=== PATIENT | male | born 1980 ===

== ENCOUNTER 2017-01-30 16:46 | Emergency (ER) | payer OTHER ==
[2017-01-30 17:03] VITALS: BMI 25.8
[2017-01-30 17:05] VITALS: RESP 18; TEMP 98.2
--- NOTE | 2017-01-30 17:54 | C.PDOC ---
History Of Present Illness 36 y/o male presents to ED for evaluation on right thigh pain developed yesterday after sustained fall. Patient reports he fell down approximate 6ft high from ladder at work, and landed on right side of body. Pain is localized over the right thigh and worse with ambulation. Patient denies Head injury, LOC , syncope, neck pain, CP, back pain, N/V, denies deformity, weakness, sensory or vascular deficits to B/L LEs. Ambulate to Ed for evaluation, not in any apparent distress. Time Seen by Provider: 01/30/17 17:36 Chief Complaint (Nursing): Lower Extremity Problem/Injury History Per: Patient History/Exam Limitations: no limitations Onset/Duration Of Symptoms: Days Current Symptoms Are (Timing): Still Present - Hip Description Of Injury: Fell Past Medical History Reviewed: Historical Data, Nursing Documentation, Vital Signs Vital Signs: Last Vital Signs Temp 98.2 F 01/30/17 17:03 Pulse 78 01/30/17 18:55 Resp 18 01/30/17 18:55 BP 124/75 01/30/17 18:55 Pulse Ox 98 01/30/17 18:55 Family History: States: No Known Family Hx - Social History Hx Alcohol Use: No Hx Substance Use: No - Immunization History Hx Tetanus Toxoid Vaccination: No Hx Influenza Vaccination: No Hx Pneumococcal Vaccination: No Review Of Systems Except As Marked, All Systems Reviewed And Found Negative. Constitutional: Negative for: Fever, Chills Musculoskeletal: Positive for: Leg Pain. Negative for: Neck Pain Skin: Negative for: Rash Neurological: Negative for: Weakness, Headache Physical Exam - Physical Exam Appears: Well, Non-toxic, No Acute Distress Skin: Normal Color, Warm, No Ecchymosis Head: Atraumatic, Normacephalic Neck: No Midline Cervical Tenderness, No Paracervical Tenderness, No Step Off Deformity, Supple Chest: Symmetrical, No Deformity, No Tenderness Gastrointestinal/Abdominal: Soft, No Tenderness Back: No Vertebral Tenderness, No Paraspinal Tenderness Extremity: Normal ROM (B/L UEs and LEs.), Tenderness (posterior Right thigh. NO palpable deformity, no ecchymoses.), No Deformity, No Swelling Neurological/Psych: Oriented x3, Normal Speech, Normal Motor, Normal Sensation, Normal Reflexes ED Course And Treatment O2 Sat by Pulse Oximetry: 96 (RA) Pulse Ox Interpretation: Normal - Other Rad pelvis and Right hip X-Ray: Interpreted by Me, Viewed By Me Interpretation: no acute fx Right knee X-Ray: Interpreted by Me, Viewed By Me Interpretation: (+) patellar fx Progress Note: On re-eval, pt is afebrile, hemodynamicaly stable. Non-toxic. AMbulatoyr in ED. head: AT/NC. neck: (-) midline tenderness. Abd: bengn. RLE : exam c/w Right posterior femoral contusion, FAROM, no neurovascular deficits. Xray review and c/w (+) Right patellar fx. Knee immobilizer applied to Right knee, crutches. Pt advised and ref. to F/u with Ortho in 2-3 days for re-eval. reutrn to ED if any worsening or new changes. Disposition Counseled Patient/Family Regarding: Studies Performed, Diagnosis, Need For Followup, Rx Given - Disposition Referrals: Fredi Puckett MD [Staff Provider] - Disposition: HOME/ ROUTINE Disposition Time: 18:20 Condition: STABLE Additional Instructions: Ice, rest, avoid prolong walking for 1 week knee immobilizer Take pain medication as need Follow up with Orthopedist in 2-3 days for re-evaluation. return to ED if any worsening or new changes. Prescriptions: traMADol [Ultram] 50 mg PO TID #7 tab Instructions: Patellar Fracture (ED), Hip Contusion (ED) Forms: Work Excuse - Clinical Impression Clinical Impression: Patella fracture, Contusion of hip - PA / YARN SIZER / Resident Statement MD/DO has reviewed & agrees with the documentation as recorded. - Scribe Statement The provider has reviewed the documentation as recorded by the Joe Garcia All medical record entries made by the Joe were at my direction and personally dictated by me. I have reviewed the chart and agree that the record accurately reflects my personal performance of the history, physical exam, medical decision making, and the department course for this patient. I have also personally directed, reviewed, and agree with the discharge instructions and disposition.
[2017-01-30 18:55] VITALS: BP 124/75; PULSE 78
--- NOTE | 2017-01-30 18:58 | RAD ---
PROCEDURE: Right Knee Radiographs. HISTORY: injury COMPARISON: None. FINDINGS: BONES: Acute patellar fracture. The finding is marked on the study for review. JOINTS: Normal. No osteoarthritis. JOINT EFFUSION: None. OTHER FINDINGS: None. IMPRESSION: Acute fracture of the patella at the insertion of the patellar tendon. Concordant results with the preliminary interpretation rendered by the emergency department physician procedure.
[2017-01-30 22:57] VITALS: O2SAT 96
--- NOTE | 2017-01-31 16:13 | RAD ---
PROCEDURE: Right femur dated 01/30/2017 HISTORY: injury COMPARISON: Correlation made with concurrent radiographs of the pelvis and right knee. . TECHNIQUE: AP and lateral views of the right femur performed. FINDINGS: Previously noted patellar fracture again noted of the right knee No evidence acute displaced fracture nor dislocation. The osseous structures intact. Mild degenerative changes right hip with slight spurring along the superolateral margins of the acetabular roof. Similar but less exuberant spurring left superolateral acetabular. Suspect minor left-sided joint space narrowing. If symptoms persist or occult fracture suspected clinically consider followup CT scan. IMPRESSION: Fracture inferior margin of the patella again noted. No evidence of acute displaced fracture nor dislocation. Mild DJD both hips as above. Consider followup CT scan if symptoms persist or occult fracture suspected clinically.
--- NOTE | 2017-01-31 16:15 | RAD ---
PROCEDURE: Pelvis dated 01/30/2017 HISTORY: Injury. COMPARISON: No prior FINDINGS: Current study reveals no evidence of acute displaced fracture nor dislocation. The osseous structures appear intact. Both femoral heads appropriately located within the respective acetabula. Slight spurring along the superolateral margins of the acetabular roofs right greater than left. There appears be some very minimal left-sided hip joint space narrowing Impression: No acute fractures. If symptoms persist or occult fracture suspected clinically recommend followup CT scan. Mild DJD as described.
== END 2017-01-30 19:00 | disposition home or self-care (01) ==
LOC: C.ER 16:46
DX: S82.001A Unspecified fracture of right patella, initial encounter for closed fracture (principal); S70.01XA Contusion of right hip, initial encounter; W11.XXXA Fall on and from ladder, initial encounter; Y92.89 Other specified places as the place of occurrence of the external cause; Y99.0 Civilian activity done for income or pay

== ENCOUNTER → 2017-05-15 19:53 | Emergency (ER) | payer SELFPAY ==
[2017-05-15 19:54] VITALS: BMI 25.8
== END | disposition left against medical advice (07) ==
LOC: C.ER 19:53
DX: S61.219A Laceration without foreign body of unspecified finger without damage to nail, initial encounter (principal); Z02.9 Encounter for administrative examinations, unspecified

== ENCOUNTER 2017-05-16 15:08 | Emergency (ER) | payer OTHER ==
[2017-05-16 15:09] VITALS: BMI 25.8
[2017-05-16 16:21] VITALS: RESP 18
[2017-05-16] MEDS ORDERED: Lidocaine 1% Inj (20ml) INFIL STA (17:26)
[2017-05-16] MEDS ORDERED: Bacitracin 500 Units/gm Oint Foilpak UD TOP STA (17:26)
[2017-05-16] MEDS ORDERED: Tetanus/Diphtheria Toxoids 0.5 ml Syringe IM ONE ×2 (17:26→17:36)
[2017-05-16] MEDS ORDERED: Bacitracin 500 Units/gm Oint Foilpak UD ONE (17:36)
[2017-05-16] MEDS ORDERED: Lidocaine 1% Inj (20ml) ONE (17:36)
--- NOTE | 2017-05-16 17:54 | RAD ---
PROCEDURE: Right ring finger radiographs. HISTORY: crush injury COMPARISON: None available. TECHNIQUE: AP radiograph of the right hand, as well as spot oblique and lateral images of ring finger were obtained. FINDINGS: RIGHT RING FINGER: Unremarkable right 4th digit, without acute displaced fracture identified. Remainder of the right hand (as seen on the AP view) grossly unremarkable. JOINTS: No dislocation. SOFT TISSUES: No evidence of radiopaque foreign body. OTHER FINDINGS: None. IMPRESSION: No acute displaced fracture or dislocation identified. If symptoms persist or if there is continued clinical concern, x-ray follow-up in 7-10 days should be considered.
--- NOTE | 2017-05-16 18:37 | C.PDOC ---
History Of Present Illness 37 y/o male presents to ED with complaints of pain to right 4th finger. Patient states yesterday he slammed door yesterday and came to ed for evaluation but left because "he had something more important to do " but pain continued which prompted visit today. Patient denies numbness, tingling or any other complaints at this time. Not UTD with tetanus vaccine Time Seen by Provider: 05/16/17 17:13 Chief Complaint (Nursing): Finger,Hand,&Wrist History Per: Patient History/Exam Limitations: no limitations Onset/Duration Of Symptoms: Days Current Symptoms Are (Timing): Still Present Quality: "Pain" Past Medical History Reviewed: Historical Data, Nursing Documentation, Vital Signs Vital Signs: Last Vital Signs Temp 98.1 F 05/16/17 18:47 Pulse 75 05/16/17 18:47 Resp 18 05/16/17 18:47 BP 134/89 05/16/17 18:47 Pulse Ox 97 05/16/17 19:07 - Medical History PMH: No Chronic Diseases Surgical History: No Surg Hx Family History: States: No Known Family Hx - Social History Hx Alcohol Use: No Hx Substance Use: No - Immunization History Hx Tetanus Toxoid Vaccination: No Hx Influenza Vaccination: No Hx Pneumococcal Vaccination: No Review Of Systems Except As Marked, All Systems Reviewed And Found Negative. Constitutional: Negative for: Fever, Chills Gastrointestinal: Negative for: Nausea, Vomiting Musculoskeletal: Positive for: Hand Pain Skin: Negative for: Rash Neurological: Negative for: Weakness, Numbness Physical Exam - Physical Exam Appears: Non-toxic Skin: Warm, Dry Head: Atraumatic, Normacephalic Eye(s): bilateral: Normal Inspection, EOMI Oral Mucosa: Moist Neck: Normal ROM, Supple Chest: Symmetrical Extremity: Capillary Refill (<2 seconds), No Deformity, Swelling (PAP joint of right 4th finger), Other (2cm laceration to dorsum of the middle phalanx of the right 4th finger) Extremity: Bilateral: Normal ROM Pulses: Left Radial: Normal, Right Radial: Normal Neurological/Psych: Oriented x3, Normal Motor, Normal Sensation ED Course And Treatment O2 Sat by Pulse Oximetry: 97 (RA) Pulse Ox Interpretation: Normal - Other Rad Right Hand 4th digit X-Ray: Interpreted by Me, Viewed By Me, Read By Radiologist Interpretation: PROCEDURE: Right ring finger radiographs. HISTORY: crush injury. COMPARISON: None available. TECHNIQUE: AP radiograph of the right hand, as well as spot oblique and lateral images of ring finger were obtained. FINDINGS: RIGHT RING FINGER: Unremarkable right 4th digit, without acute displaced fracture identified. Remainder of the right hand (as seen on the AP view) grossly unremarkable. JOINTS: No dislocation. SOFT TISSUES: No evidence of radiopaque foreign body. OTHER FINDINGS: None. IMPRESSION: No acute displaced fracture or dislocation identified. If symptoms persist or if there is continued clinical concern, x-ray follow-up in 7-10 days should be considered. Progress Note: Keflex, Finger soaked and irigated,. Finger sutured and splint applied to patient. Patient discharged and advised to follow up with PMD Procedure: Wound Repair - Consent Obtained Consent obtained: Verbal - Performed by Performed by: Mid-level Provider (by medical student Guzman) - Indications Indication(s):: Laceration - Location Finger:: Right, Ring - Anesthetic Technique Anesthetic Technique: Regional block Local/Regional Anesthetic:: Lidocaine 1% - Complexity Complexity:: Simple (one layer) - Wound repair method Sutures:: # (3), Size (4-0), Type (vicryl), Technique (interrupted) - Patient tolerated procedure Patient Tolerated Procedure:: Well Disposition - Disposition Referrals: Moni Lange MD [Staff Provider] - Disposition: HOME/ ROUTINE Disposition Time: 18:34 Condition: STABLE Additional Instructions: Follow up with Hand specialist within 1-2 days. Return to ED if feel worse. Prescriptions: Mupirocin 2% Ointment [Bactroban Ointment] 1 appl TP BID #1 tube Cephalexin [cephalexin] 500 mg PO Q6 #28 cap Ibuprofen [Motrin Tab] 600 mg PO Q8 #30 tab Instructions: Care For Your Absorbable Stitches (ED) Forms: [employer] (Mohawk) - Clinical Impression Clinical Impression: Finger laceration - PA / DATA INPUT CLERK / Resident Statement MD/DO has reviewed & agrees with the documentation as recorded. - Scribe Statement The provider has reviewed the documentation as recorded by the Scribmikaela Garcia All medical record entries made by the Scribe were at my direction and personally dictated by me. I have reviewed the chart and agree that the record accurately reflects my personal performance of the history, physical exam, medical decision making, and the department course for this patient. I have also personally directed, reviewed, and agree with the discharge instructions and disposition.
[2017-05-16 18:47] VITALS: BP 134/89; PULSE 75; TEMP 98.1
[2017-05-16 19:00] VITALS: O2SAT 97
== END 2017-05-16 19:04 | disposition home or self-care (01) ==
LOC: C.ER 15:08
DX: S61.214A Laceration without foreign body of right ring finger without damage to nail, initial encounter (principal); W23.0XXA Caught, crushed, jammed, or pinched between moving objects, initial encounter; Y93.89 Activity, other specified; Y92.89 Other specified places as the place of occurrence of the external cause

== ENCOUNTER 2017-05-25 13:07 | Emergency (ER) | payer OTHER ==
[2017-05-25 13:07] VITALS: BMI 25.8
[2017-05-25 13:22] VITALS: BP 122/72; PULSE 73; RESP 18; TEMP 98.4; O2SAT 98
--- NOTE | 2017-05-25 13:56 | C.PDOC ---
History Of Present Illness 37 yo male came to ER for evaluation right 4th finger. Pt had a laceration repair on 05/16, took the coarse of antibiotics and the following day noted swelling and discharge from the laceration. No change in sensation. No fever. Time Seen by Provider: 05/25/17 13:27 Chief Complaint (Nursing): Wound Check History Per: Patient History/Exam Limitations: no limitations Onset/Duration Of Symptoms: Days Ago Past Medical History Vital Signs: Last Vital Signs Temp 98.4 F 05/25/17 13:21 Pulse 73 05/25/17 13:21 Resp 18 05/25/17 13:21 BP 122/72 05/25/17 13:21 Pulse Ox 98 05/25/17 17:00 Family History: States: Unknown Family Hx - Social History Hx Alcohol Use: No Hx Substance Use: No - Immunization History Hx Tetanus Toxoid Vaccination: No Hx Influenza Vaccination: No Hx Pneumococcal Vaccination: No Review Of Systems Constitutional: Negative for: Fever Cardiovascular: Negative for: Chest Pain Neurological: Negative for: Weakness, Numbness Physical Exam - Physical Exam Appears: Well, Non-toxic, No Acute Distress Skin: Warm, Dry Head: Atraumatic, Normacephalic Eye(s): bilateral: Normal Inspection, EOMI Nose: Normal Oral Mucosa: Moist Neck: Normal ROM, Supple Chest: Symmetrical Respiratory: No Accessory Muscle Use Extremity: Normal ROM, Tenderness ((+) tenderness, swelling and mild erythema to right 4th finger , three sutures noted on one side- not holding laceration closed, no discharge), Capillary Refill (< 2 sec), Swelling Pulses: Left Radial: Normal, Right Radial: Normal Neurological/Psych: Oriented x3, Normal Speech, Normal Motor, Normal Sensation ED Course And Treatment O2 Sat by Pulse Oximetry: 98 Progress Note: Suture were removed. Wound was irrigated. Bacitracin applied and finger splint applied by RN. No discharge noted. Very mild erythema localized around the cut. Discussed wound care and f.u with hand specialist / ER in 1-2 days. Disposition - Disposition Referrals: Yinka Wagner MD [Staff Provider] - Disposition: HOME/ ROUTINE Disposition Time: 13:55 Condition: STABLE Additional Instructions: Wound check in 2 days. Prescriptions: Mupirocin 2% Ointment [Bactroban Ointment] 1 appl TP TID #1 tube Sulfamethoxazole/Trimethoprim [Bactrim DS 800 mg-160 mg] 1 tab PO BID #14 tab Instructions: Finger Laceration (ED) Forms: [employer] (Georgian) - Clinical Impression Clinical Impression: Finger laceration, Visit for wound check, Infection of skin
[2017-05-25] MEDS ORDERED: Bacitracin 500 Units/gm Oint Foilpak UD ONE (14:20)
== END 2017-05-25 14:27 | disposition home or self-care (01) ==
LOC: C.ER 13:07
DX: Z51.89 Encounter for other specified aftercare (principal); L08.9 Local infection of the skin and subcutaneous tissue, unspecified; S61.214A Laceration without foreign body of right ring finger without damage to nail, initial encounter; X58.XXXA Exposure to other specified factors, initial encounter

== ENCOUNTER 2017-10-09 14:05 | Emergency (ER) | payer OTHER ==
[2017-10-09 14:06] VITALS: BMI 25.8
[2017-10-09] MEDS ORDERED: Bacitracin 500 Units/gm Oint Foilpak UD TOP ONE (17:21)
[2017-10-09] MEDS ORDERED: Lidocaine 1% Inj (20ml) INFIL ONE (17:21)
[2017-10-09] MEDS ORDERED: Tdap Vaccine 0.5 ml Vial (10-64 yrs) IM ONE ×2 (17:21→17:28)
[2017-10-09] MEDS ORDERED: Bacitracin 500 Units/gm Oint Foilpak UD ONE (17:28)
[2017-10-09] MEDS ORDERED: Lidocaine 1% Inj (20ml) ONE (17:28)
[2017-10-09 17:33] VITALS: BP 144/92; PULSE 72; RESP 18; TEMP 98.9; O2SAT 98
--- NOTE | 2017-10-09 17:44 | RAD ---
PROCEDURE: Right Hand Radiographs. HISTORY: punched glass, eval for fb COMPARISON: Right 4th digit radiographs performed 05/16/17 FINDINGS: BONES: No acute displaced fracture. JOINTS: No dislocation. SOFT TISSUES: Soft tissue swelling. 0.6 x 2.6 cm density at the level of the distal 2nd metacarpal (laterally) and 0.2 cm density more proximally seen on lateral view. These densities are suspected to reflect foreign bodies. OTHER FINDINGS: None. IMPRESSION: Soft tissue swelling. 0.6 x 2.6 cm density at the level of the distal 2nd metacarpal (laterally) and 0.2 cm density more proximally seen on lateral view. These densities are suspected to reflect foreign bodies. No acute displaced fracture, dislocation, or significant joint effusion identified. If symptoms persist, or if there is continued clinical concern, x-ray follow-up in 7-10 days should be considered.
--- NOTE | 2017-10-09 18:16 | C.PDOC ---
History Of Present Illness 37 y/o male presents to ED for evaluation of right hand lacerations sustained prior to arrival after punching TV. Patient reports foreign body sensation and denies weakness, numbness or any other complaints at this time. Time Seen by Provider: 10/09/17 17:10 Chief Complaint (Nursing): Abnormal Skin Integrity History Per: Patient History/Exam Limitations: no limitations Onset/Duration Of Symptoms: Hrs Current Symptoms Are (Timing): Still Present Past Medical History Reviewed: Historical Data, Nursing Documentation, Vital Signs Vital Signs: Last Vital Signs Temp 98.9 F 10/09/17 17:33 Pulse 72 10/09/17 17:33 Resp 18 10/09/17 17:33 BP 144/92 H 10/09/17 17:33 Pulse Ox 98 10/09/17 18:23 - Medical History PMH: No Chronic Diseases Surgical History: No Surg Hx Family History: States: No Known Family Hx - Social History Hx Alcohol Use: No Hx Substance Use: No - Immunization History Hx Tetanus Toxoid Vaccination: No Hx Influenza Vaccination: No Hx Pneumococcal Vaccination: No Review Of Systems Musculoskeletal: Positive for: Hand Pain Skin: Negative for: Rash Neurological: Negative for: Weakness, Numbness Physical Exam - Physical Exam Appears: Non-toxic, No Acute Distress Skin: Warm, Dry, No Rash, Other (1cm laceration diagonal. 2cm laceration to 3rd metacarpal area. 3cm laceration across right knuckle) Head: Atraumatic, Normacephalic Eye(s): bilateral: Normal Inspection Oral Mucosa: Moist Neck: Normal ROM, Supple Extremity: Normal ROM, No Deformity, Swelling (right hand) Pulses: Left Radial: Normal, Right Radial: Normal Neurological/Psych: Oriented x3, Normal Motor, Normal Sensation ED Course And Treatment O2 Sat by Pulse Oximetry: 98 (RA) Pulse Ox Interpretation: Normal Laceration - Laceration Repair Right hand Wound Length (In cm): 1cm Description Of Wound: Linear Wound Cleansed With: Betadine, Sterile Saline Anesthesia: Lidocaine 1% Wound Examination: Irrigated With Saline, No FB With Wound Exploration Wound Debridement/Revision: Wound Debrided Wound Closure: Suture (2) Suture Technique And Material Used: Nylon (4-O) right 3rd metacarpal Wound Length (In cm): 2cm Description Of Wound: Linear Wound Cleansed With: Betadine, Sterile Saline Anesthesia: Lidocaine 1% Wound Examination: Irrigated With Saline Wound Closure: Suture (4) Suture Technique And Material Used: Nylon (4-O) Right knuckle Wound Length (In cm): 3 Description Of Wound: Linear Wound Cleansed With: Betadine, Sterile Saline Anesthesia: Lidocaine 1% Wound Examination: Irrigated With Saline, Foreign Material Removed Manually ( Glass) Wound Closure: Suture (7) Suture Technique And Material Used: Nylon (4-O) Medical Decision Making Medical Decision Making: lacs repaired, tdap updated. d./c with keflex Disposition Counseled Patient/Family Regarding: Studies Performed, Diagnosis, Need For Followup, Rx Given - Disposition Referrals: [facility] [Outside] Disposition Time: 18:19 Additional Instructions: Keep dressing on hand for next 24 hours, then change dressing daily, apply bacitracin and cover up. Take antibiotics as prescribed. Take Tylenol or Motrin for pain. Return to ER for any sign of infection such as redness, swelling, or discharge. Suture removal 10 days. Prescriptions: Bacitracin OINT 1 applic TOP BID #1 tube Cephalexin [cephalexin] 500 mg PO QID #20 cap Instructions: Laceration Repair With Stitches (DC) Forms: [employer] (Saudi Arabian) - Clinical Impression Clinical Impression: Laceration of right hand with foreign body - PA / AREA COUNSELOR / Resident Statement MD/DO has reviewed & agrees with the documentation as recorded. - Scribe Statement The provider has reviewed the documentation as recorded by the Joe Garcia All medical record entries made by the Yaelibmikaela were at my direction and personally dictated by me. I have reviewed the chart and agree that the record accurately reflects my personal performance of the history, physical exam, medical decision making, and the department course for this patient. I have also personally directed, reviewed, and agree with the discharge instructions and disposition.
== END 2017-10-09 18:28 | disposition home or self-care (01) ==
LOC: C.ER 14:05
DX: S61.421A Laceration with foreign body of right hand, initial encounter (principal); W22.8XXA Striking against or struck by other objects, initial encounter; Y92.89 Other specified places as the place of occurrence of the external cause

== ENCOUNTER 2017-10-25 16:11 | Emergency (ER) | payer OTHER ==
[2017-10-25 16:11] VITALS: BMI 25.8
[2017-10-25 16:24] VITALS: BP 138/86; PULSE 77; TEMP 98.2; O2SAT 98
[2017-10-25 17:28] VITALS: RESP 18
== END 2017-10-25 16:45 | disposition left against medical advice (07) ==
LOC: C.ER 16:11
DX: Z02.89 Encounter for other administrative examinations (principal); Z48.02 Encounter for removal of sutures

== ENCOUNTER 2018-04-10 10:13 | Emergency (ER) | payer MEDICAID, OTHER ==
[2018-04-10 10:13] VITALS: BMI 25.8
--- NOTE | 2018-04-10 10:43 | C.PDOC ---
History Of Present Illness <Avery Sanchez - Last Filed: 04/10/18 14:40> <Reji Hutchins M - Last Filed: 04/12/18 00:06> CC: Right knee injury Patient is a 38 year old male with no known past medical history, who presents to the clinic with complaint of right knee injury that started 1.5 months ago after falling from a 9-10 ft ladder while working. Patient reports that he had an injury to his right knee a year ago which happened at work as well. Patient admits to mild difficulty with ambulation but denies numbness or tingling or knee swelling. (Avery Sanchez) History Per: Patient History/Exam Limitations: no limitations Onset/Duration Of Symptoms: Days Current Symptoms Are (Timing): Still Present Severity: Moderate Pain Scale Rating Of: 5 Location: Right Knee Quality: Dull, achy <Avery Sanchez - Last Filed: 04/10/18 14:40> <Reji Hutchins M - Last Filed: 04/12/18 00:06> Time Seen by Provider: 04/10/18 10:25 Chief Complaint (Nursing): Lower Extremity Problem/Injury Past Medical History - Medical History PMH: No Chronic Diseases Other Surgeries: Hernia repair at the age of 17 Family History: States: Unknown Family Hx - Social History Hx Alcohol Use: No Hx Substance Use: No - Immunization History Hx Tetanus Toxoid Vaccination: No Hx Influenza Vaccination: No Hx Pneumococcal Vaccination: No <Avery Sanchez - Last Filed: 04/10/18 14:40> Vital Signs: Last Vital Signs Temp 98 F 04/10/18 13:36 Pulse 60 04/10/18 13:36 Resp 18 04/10/18 13:36 BP 118/74 04/10/18 13:36 Pulse Ox 98 04/10/18 14:42 Review Of Systems Constitutional: Negative for: Fever, Chills, Weakness, Malaise, Weight loss Eyes: Negative for: Pain, Vision Change ENT: Negative for: Ear Pain, Ear Discharge, Nose Congestion, Mouth Pain, Throat Swelling Cardiovascular: Negative for: Chest Pain, Palpitations Respiratory: Negative for: Cough, Shortness of Breath Gastrointestinal: Negative for: Nausea, Vomiting, Abdominal Pain Genitourinary: Negative for: Dysuria Musculoskeletal: Positive for: Other (Right knee movie ). Negative for: Neck Pain Skin: Negative for: Rash, Lesions, Jaundice, Bruising Neurological: Positive for: Weakness, Numbness. Negative for: Confusion, Seizures, Dizziness, Other <Avery Sanchez - Last Filed: 04/10/18 14:40> Physical Exam - Physical Exam Appears: Well Skin: Normal Color, Warm Head: Atraumatic, Normacephalic Eye(s): bilateral: EOMI Oral Mucosa: Moist Neck: Normal ROM Cardiovascular: Rhythm Regular Respiratory: Normal Breath Sounds Gastrointestinal/Abdominal: Normal Exam, Bowel Sounds Extremity: Other (Decreased ROM at the right knee joint ) Neurological/Psych: Oriented x3, Normal Speech <Avery Sanchez - Last Filed: 04/10/18 14:40> - Physical Exam Extremity: Tenderness (right anterior knee, no gross swelling,nv intact, no calf tenderness ) <Reji Hutchins - Last Filed: 04/12/18 00:06> ED Course And Treatment O2 Sat by Pulse Oximetry: 98 <Avery Sanchez - Last Filed: 04/10/18 14:40> Medical Decision Making <Avery Sanchez - Last Filed: 04/10/18 14:40> <Reji Hutchins - Last Filed: 04/12/18 00:06> Medical Decision Making: Right Knee X-ray: No interval fracture or interval dislocation noted. The intra osseous inferior patellar pole fracture lines suggest interval, at least, partial healing here. . The separate inferior patellar osseous fracture fragment is similar in appearance since 2017 compatible with an old injury no further displacement of it noted. (Avery Sanchez) patient states he will follow up with his orthopaedic doctor and will go to the office today. (Reji Hutchins) Disposition Discussed With : Reji Hutchins - Disposition Disposition Time: 12:02 <Avery Sanchez - Last Filed: 04/10/18 14:40> <Reji Hutchins - Last Filed: 04/12/18 00:06> - Disposition Referrals: [facility] at [facility] [Outside] Raúl Ennis III, MD [Staff Provider] - Disposition: HOME/ ROUTINE Condition: STABLE Additional Instructions: Please discharge patient home Please follow up with your primary care physician or follow up with [facility], in order to establish care within 1-3 days Please follow up with an orthopedics that you have been referred to within 1-2 days Please keep knee elevated, application of ice pack as needed, brace to keep immobilization, over the counter pain ibuprofen for pain control Please return to the hospital if pain worsens discussed knee xray findings Prescriptions: Ibuprofen [Motrin Tab] 600 mg PO Q6H PRN #15 tab PRN Reason: Pain, Severe (8-10) Instructions: Chronic Knee Pain (DC), Knee Pain (DC) Forms: General Discharge Instructions, [facility] (Chilean), Work Note - Clinical Impression Clinical Impression: Right knee pain
[2018-04-10 12:08] VITALS: RESP 18
[2018-04-10 13:37] VITALS: BP 118/74; PULSE 60; TEMP 98
--- NOTE | 2018-04-10 13:42 | RAD ---
Date of service: 04/10/2018 PROCEDURE: Right Knee Radiographs. HISTORY: Right knee injury; s/p fall from a ladder COMPARISON: 01/30/2017 FINDINGS: BONES: The separate ossification bordering the inferior patellar pole and projecting over the superior patellar tendon at its insertion is renoted. A osseous avulsion here is compatible with this appearance prior history of trauma also noted. The prior inferior patellar intra osseous fracture lines are less conspicuous consistent with partial interval healing of the inferior patellar pole -this is separate from the osseous avulsed fracture fragment which appears similar. No acute interval fracture fragments suggested. JOINTS: Normal. No osteoarthritis. JOINT EFFUSION: None. OTHER FINDINGS: None. IMPRESSION: No interval fracture or interval dislocation noted noted The intra osseous inferior patellar pole fracture lines suggest interval, at least, partial healing here. . The separate inferior patellar osseous fracture fragment is similar in appearance since 2016 compatible with an old injury no further displacement of it noted.
[2018-04-10 14:42] VITALS: O2SAT 98
== END 2018-04-10 14:40 | disposition home or self-care (01) ==
LOC: C.ER 10:13
DX: M25.561 Pain in right knee (principal)

== ENCOUNTER 2018-04-23 11:12 | Emergency (ER) | payer MEDICAID ==
[2018-04-23 11:12] VITALS: BMI 25.8
[2018-04-23 11:20] VITALS: BP 118/73; PULSE 90; RESP 18; TEMP 98.2; O2SAT 96
[2018-04-23] MEDS ORDERED: Alum-Mag Hydrox-Simethicone Susp (30 mL) PO STA (12:12)
[2018-04-23] MEDS ORDERED: Aluminum Hydroxide/Magnesium Hydroxide Susp (30 mL) ONE (12:16)
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
[2018-04-23 12:58] LABS: BASO % 0.5 % (0.0-2.0); EOS # 0.1 K/uL (0.0-0.7); EOS % 2.1 % (0.0-4.0); HEMOGLOBIN 15.6 g/dL (12.0-18.0); LYMPH # 1.6 K/uL (1.0-4.3); LYMPH % 25.1 % (20.0-40.0); MEAN CELL VOLUME 87.1 fL (80.0-94.0); MEAN CORPUSCULAR HEMOGLOBIN 30.2 pg (27.0-31.0); MEAN CORPUSCULAR HGB CONC 34.7 g/dL (33.0-37.0); MEAN PLATELET VOLUME 8.8 fL (7.2-11.7); MONO # 0.6 K/uL (0.0-0.8); MONO % 9.8 % (0.0-10.0); NEUT # 3.9 K/uL (1.8-7.0); NEUT % 62.5 % (50.0-75.0); NRBC % 0.1 % (0.0-2.0); RBC 5.17 Mil/uL (4.40-5.90); RED CELL DISTRIBUTION WIDTH 13.5 % (11.5-14.5); WHITE BLOOD COUNT 6.3 K/uL (4.8-10.8)
[2018-04-23 13:19] LABS: ALB/GLOB RATIO 1.5 (1.0-2.1); ALBUMIN 4.3 g/dL (3.5-5.0); ALT/SGPT 31 U/L (21-72); AST/SGOT 19 U/L (17-59); BLOOD UREA NITROGEN 13 mg/dL (9-20); CALCIUM 9.4 mg/dl (8.6-10.4); GFR NON-AFRICAN AMERICAN > 60; LIPASE 73 U/L (23-300)
--- NOTE | 2018-04-23 13:36 | RAD ---
Date of service: 04/23/2018 PROCEDURE: Radiographs of the chest and abdomen (obstructive series) HISTORY: Abd Pain COMPARISON: No prior. TECHNIQUE: AP radiograph of the chest, with upright and supine radiographs of the abdomen. FINDINGS: CHEST: Lungs: Clear. Cardiovascular: Normal size heart. No pulmonary vascular congestion. Pleura: No pleural fluid. No pneumothorax. Other findings: None. ABDOMEN AND PELVIS: Bowel: Unremarkable bowel gas pattern. No evidence of mechanical obstruction. Free air: None. Bones: Unremarkable. Other findings: None. IMPRESSION: Unremarkable radiographs of chest and abdomen. No evidence of mechanical bowel obstruction.
== END 2018-04-23 14:42 | disposition home or self-care (01) ==
LOC: C.ER 11:12
DX: R10.10 Upper abdominal pain, unspecified (principal)